=== PATIENT | male | born 1980 | race Caucasian/White ===

== ENCOUNTER 2016-09-25 03:44 | Emergency (ER) | payer BC ==
[~2016-09-25] VITALS: Ht 185.4 cm; Wt 129.7 kg
--- NOTE | ~2016-09-25 | US85 ---
[facility] A Service of [facility] RADIOLOGY TEXT RESULTS PATIENT: BRITTANY HURT III LOCATION: SED : 78 UNIT #: [id number] AGE: [address]: Jb Shi MD SEX: M ORDER DR: [id number] [address] [address] [id number] E MR#: [id number] Acc #: [id number] NAME: BRITTANY HURT III : 1980 SEX: M STUDY DATE/TIME: 09/25/2016 6:34 UNIT: SED ROOM: STUDY DESCRIPTION: [facility] [facility] [employer] [facility] Attending Physician: Jb Shi M.D. Ordering Physician: Justo Yap M.D. MEDICAL IMAGING REPORT This report is preliminary unless electronic signature is present. EXAM Color Doppler ultrasound examination the right lower extremity. HISTORY Right calf pain and tightness for the past 2 weeks, gradually worsening. TECHNIQUE Venous ultrasound examination of the right lower extremity was performed using grayscale, spectral Doppler and color flow Doppler imaging. FINDINGS The examination is negative. There is no evidence of right lower extremity deep venous thrombus from the groin to the lower calf. Visualized greater saphenous vein is also patent. IMPRESSION Negative examination. No evidence of right lower extremity deep venous thrombosis. Dictated by... Keyur Bolanos M.D. THIS IS AN ELECTRONICALLY VERIFIED REPORT Keyur Bolanos M.D. at 09/25/2016 3:39 PM RLF/gz TD: 09/25/2016 08:32 JOB #: [id number] MEDICAL IMAGING REPORT Page 1 of 1
[2016-09-25] MEDS ORDERED: NO MEDICATIONS (03:57)
[2016-09-25 05:02] LABS: BASOPHIL# 0.2 X10e3 (0-0.3); BASOPHIL% 1.4 % (0-2.5); DIFF IND NO; EOSINOPHIL# 0.2 X10e3 (0-0.7); EOSINOPHIL% 1.3 % (0.0-7.0); HEMATOCRIT 47.6 % (38.0-50.0); HEMOGLOBIN 16.4 gm/dL (13.0-16.0); LYMPHOCYTE# 2.1 X10e3 (1.0-3.5); LYMPHOCYTE% 14.4 % (17.0-45.0); MEAN CELL VOLUME 91.3 FL (83-96); MEAN CORPUSCULAR HEMOGLOBIN 31.4 PG (28-34); MEAN CORPUSCULAR HGB CONC 34.4 g/dL (30-36); MEAN PLATELET VOLUME 8.7 FL (6.5-11.5); MONOCYTE# 0.9 X10e3 (0-1.0); MONOCYTE% 6.5 % (3.0-12.0); NEUTROPHIL# 10.9 X10e3 (1.5-7.1); NEUTROPHIL% 76.4 % (40-75); PLATELET COUNT 197 X10e3 (140-420); RED BLOOD COUNT 5.21 X10e (3.90-5.60); RED CELL DISTRIBUTION WIDTH 13.1 % (11.0-15.5); WHITE BLOOD COUNT 14.3 X10e3 (4.0-10.5)
[2016-09-25 05:05] LABS: PROTHROMBIN TIME (PATIENT) 11.2 SECONDS (9.5-12.4)
[2016-09-25 05:13] LABS: BUN/CREATININE RATIO 18.57; CALCIUM SERUM 9.1 mg/dL (8.4-10.2); CREATININE SERUM 0.7 mg/dL (0.6-1.4); GLOM FILT RATE Estimated 120.6 mL/min (>60); PARTIAL THROMBOPLASTIN TIME <20.0 SECONDS (25.6-38.1); POTASSIUM 3.7 mmol/L (3.5-5.1)
== END 2016-09-25 08:25 | disposition home or self-care (01) ==
LOC: SED 03:44
PROVIDERS: Emergency Medicine
DX: M79.604 Pain in right leg (principal); R20.2 Paresthesia of skin; F17.210 Nicotine dependence, cigarettes, uncomplicated
CPT/HCPCS: 36415; 80048; 85025; 85610; 85730; 93971; 99284